=== PATIENT | female | born 1965 | race Caucasian/White ===

== ENCOUNTER 2017-01-15 10:30 | Day surgery (SDC) | payer OTHER ==
[2017-01-01 16:19] VITALS: BMI 25.6
[~2017-01-15 10:30] MED LIST: CEFAZOLIN 1 GM/D5W 50 ML IVPB ONE
[2017-01-15] MEDS ORDERED: LIDOCAINE HCL 1%, 10 MG/ML (20ML VIAL) ONE (11:33)
[2017-01-15] MEDS ORDERED: BUPIVACAINE HCL/PF 2.5 MG/ML - 30 ML VIAL IJ ONE (11:33)
[2017-01-15] MEDS ORDERED: DEXAMETHASONE SOD PHOSPHATE/PF 10 MG/ML SDV ONE (11:33)
[2017-01-15] MEDS ORDERED: LIDOCAINE HCL 2% (20ML MULTI-DOSE VIAL) NR ONE (11:34)
[2017-01-15] MEDS ORDERED: MIDAZOLAM HCL 2 MG/2 ML SINGLE DOSE VIAL ONE (11:52)
[2017-01-15] MEDS ORDERED: BUPIVACAINE HCL/PF 0.5% (5MG/ML) 10 ML VIAL ONE (12:00)
[2017-01-15] MEDS ORDERED: PROPOFOL 20 ML ONE ×2 (12:22→12:25)
[2017-01-15] MEDS ORDERED: ONDANSETRON 4 MG/2 ML VIAL ONE (12:23)
[2017-01-15] MEDS ORDERED: GLYCOPYRROLATE 0.2 MG/1 ML VIAL ONE (12:23)
[2017-01-15] MEDS ORDERED: DEXAMETHASONE SOD PHOSPHATE 4 MG/1 ML VIAL ONE (12:23)
[2017-01-15] MEDS ORDERED: LIDOCAINE HCL 2% (50ML VIAL) INF ONE (12:37)
[2017-01-15] MEDS ORDERED: PHENYLEPHRINE HCL 10 MG/1 ML SINGLE DOSE VIAL ONE (12:42)
[2017-01-15] MEDS ORDERED: DEXAMETHASONE SOD PHOSPHATE 10 MG/1 ML VIAL IM ONE (13:15)
[2017-01-15] MEDS ORDERED: BUPIVACAINE HCL/PF 0.5% (5MG/ML) 10 ML VIAL IJ ONE (13:16)
[2017-01-15 14:06] VITALS: TEMP 97.5
[2017-01-15 14:35] VITALS: PULSE 81
[2017-01-15 15:04] VITALS: BP 146/97
--- NOTE | 2017-01-16 00:25 | OP ---
DATE OF OPERATION: 01/15/2017 PREOPERATIVE DIAGNOSIS: Hallus abducto valgus deformity right foot. POSTOPERATIVE DIAGNOSIS: Hallus abducto valgus deformity right foot. PROCEDURE: Eduardo bunionectomy right foot. ANESTHESIA: Local with MAC (13.0 mL of lidocaine 2% plain was used). SURGEON: Garrison Orosco M.D. ASSISTANTS: None. HEMOSTASIS: Obtained using a pneumatic ankle tourniquet at the right ankle at 250 mmHg. PROCEDURE: Patient's vital signs were noted to be stable. She was brought to the OR and placed on the OR table in the supine position. Under general sedation, patient was administered local anesthesia. Once local anesthesia was attained, a sterile prepping and draping of the right foot was performed. Now the well padded tourniquet at the right ankle was inflated. And at this point, a 4.0 cm dorsal linear incision was made centered proximal to the first MPJ and the incision was just medial to the extensor hallucis longus tendon. The incision was carefully deepened via sharp and blunt dissection. The skin and subcutaneous tissues were reflected away from the underlying deep capsular structures, both medial and laterally. Now an L-shaped capsular incision was made, the base of the L being medial at the first MPJ joint line. Now the medial collateral ligament of the first MPJ was transected. Attention was paid both the medial and lateral aspects of the first MPJ whereby the capsular and periosteal tissues were sharply dissected from both aspects of the first metatarsal head. At this point the medial eminence of the first metatarsal head was resected using a sagittal saw. It was noted that there were at least 2 exostoses projecting medially at the medial aspect of the first metatarsal head. Now the foot was repositioned so that the medial aspect of the first metatarsal head was on the transverse plane. At this point, two osteotomies were created. The plantar osteotomy was made at a 60 degree angle to the long axis of the first metatarsal shaft. The second osteotomy was made at approximately 40 degree angle to this first cut, and this was made from the center of the first metatarsal head to the dorsum of the first metatarsal shaft. Therefore, the apex of this V was essential in the first metatarsal head. The osteotomy was carried straight through and through the lateral cortex. At this point, the capital fragment was transposed laterally upon the first metatarsal shaft. Once adequate alignment of the first MPJ was appreciated, the capital fragment was impacted upon the first metatarsal shaft and was noted to be very stable. At this point, a medial capsulorrhaphy was performed at the first MPJ. Now the capsular tissue was closed using simple sutures of 2-0 Vicryl. An extensor hallucis longus tenectomy was performed as well as tenotomy of the adducta hallucis tendon. The subcutaneous tissue was closed using simple sutures of 4-0 Vicryl. The skin was closed using subcuticular sutures of 4-0 Prolene. Postoperative injectable consisting of 2.0 mL dexamethasone phosphate where 8 mg of dexamethasone phosphate was used with 2.0 mL of Marcaine 0.5% plain. The tourniquet was deflated and normal capillary filling time was noted instantaneously all digits right foot. The wound expectancy is clean, and the prognosis is good. GARRISON OROSCO DPM [id number]
--- NOTE | 2017-01-21 16:03 | PATH ---
Surgical Pathology Report Patient Name: SILVANA ZEPEDA [facility]. Rec. #: [id number] /Age/Gender: 1965 (Age: 51) / F Account: [id number] Location: [facility] Taken: 01/15/2017 Received: 01/15/2017 Reported: 01/21/2017 Physicians: Lucien Ho Specimen(s) Received A: EXOSTOSIS FIRST METATARSAL HEAD RIGHT FOOT B: CAPSULAR TISSUE FIRST METATARSAL RIGHT FOOT Clinical History HAV deformity right foot Final Diagnosis A. EXOSTOSIS, FIRST METATARSAL HEAD, RIGHT FOOT, EXCISION: CARTILAGE-CAPPED BONE SHOWING DEGENERATIVE CHANGES OF OVERLYING CARTILAGE. B. CAPSULAR TISSUE, FIRST METATARSAL, RIGHT FOOT, EXCISION: FIBROCOLLAGENOUS TISSUE, CARTILAGE AND SCANT BONE. Electronically Signed Rani Nixon M.D. Gross Description A. Received in formalin labeled "exostosis first metatarsal head right foot," are 2 del rio, irregular portions of bone measuring 1.1 x 0.7 x 0.2 cm and 1.7 x 1.4 x 0.3 cm. Cutting Torch Operator sections are submitted in one cassette, following decalcification. B. Received in formalin labeled "capsular tissue first metatarsal right foot," is a 1.1 x 0.5 x 0.2 cm del rio soft tissue fragment. The specimen is submitted in toto in one cassette. 01/16/201701/16/2017
== END 2017-01-15 15:09 | disposition home or self-care (01) ==
LOC: FASU 10:30
PROVIDERS: ATTEND Podiatrist
PROC: 0QSN0ZZ Reposition Right Metatarsal, Open Approach (ICD-10-PCS; principal; 2017-01-15 12:31)
DX: M20.11 Hallux valgus (acquired), right foot (principal)
CPT/HCPCS: 84703; 88304-TC; 88311-TC

== ENCOUNTER 2017-01-17 15:44 | Emergency (ER) | payer OTHER ==
[2017-01-17 15:49] VITALS: BP 139/91; PULSE 107; TEMP 97.4; BMI 27.4
--- NOTE | 2017-01-17 16:12 | PDOC ---
History of Present Illness - General Chief Complaint: Injury Stated Complaint: HAND INJURY Time Seen by Provider: 01/17/17 15:57 History Source: Patient Exam Limitations: No Limitations - History of Present Illness Initial Comments: 01/17/17 16:07 51 yr female trip and fall injured right hand. Method of Injury: reports: fell Extremity Pain Location - Extremity Pain Location Extremity Pain Locations: right: hand Past History - Past Medical History Allergies/Adverse Reactions: Allergies Allergy/AdvReac Type Severity Reaction Status Date / Time No Known Allergies Allergy Verified 01/17/17 15:46 Home Medications: Ambulatory Orders NK [No Known Home Medication] 01/17/17 Anemia: No Asthma: No Cancer: Yes (HX [facility] 2000-TREATED WITH CHEMO AND RT) Cardiac Disorders: No CVA: No COPD: No CHF: No Dementia: No Diabetes: No GI Disorders: No Disorders: No HTN: Yes Hypercholesterolemia: No Liver Disease: No Seizures: No Thyroid Disease: No - Surgical History Abdominal Surgery: Yes (fibroids) Appendectomy: No Cardiac Surgery: No Cholecystectomy: No Lung Surgery: No Neurologic Surgery: No Orthopedic Surgery: No - Psycho/Social/Smoking Cessation Hx Anxiety: No Suicidal Ideation: No Smoking History: Never smoked Have you smoked in the past 12 months: No Information on smoking cessation initiated: No Hx Alcohol Use: No Drug/Substance Use Hx: No Substance Use Type: None Hx Substance Use Treatment: No Review of Systems - Review of Systems Able to Perform ROS?: Yes Is the patient limited Uzbek proficient: No Constitutional: No: Symptoms Reported HEENTM: No: Symptoms Reported Respiratory: No: Symptoms reported Cardiac (ROS): No: Symptoms Reported ABD/GI: No: Symptoms Reported : No: Symptoms Reported Musculoskeletal: Yes: Symptoms Reported *Physical Exam - Vital Signs Last Vital Signs Temp Pulse Resp BP Pulse Ox 97.4 F L 107 H 18 139/91 100 01/17/17 15:47 01/17/17 15:47 01/17/17 15:47 01/17/17 15:47 01/17/17 15:47 - Physical Exam General Appearance: Yes: Nourished, Appropriately Dressed HEENT: positive: EOMI, SHASHI Extremity: positive: Normal Capillary Refill, Tender (dorsal surface right hand at base of 4th and 5h digits with swelling noted) Integumentary: positive: Normal Color, Dry, Warm, Bruising, Other (nv intact from of all 5 digits, limited flexion of 4th finger due to pain at the base of finger ). negative: Swelling Neurologic: positive: Fully Oriented, Alert, Normal Mood/Affect, Normal Response , Motor Strength 5/5 Procedures - Splinting Splint Location: Right: Hand (volar splint right hand with 4th 5th fingers at 90 degrees flexion ) Hand-Made Type: orthoglass Splint Type: Yes: Volar ED Treatment Course - RADIOLOGY Radiology Studies Ordered: Category Date Time Status HAND- RIGHT [RAD] Stat Radiology 01/17/17 15:57 Ordered Medical Decision Making - Medical Decision Making 01/17/17 18:47 cc: right hand injury after trip and fall 01/17/17 18:49 positive xray for fracture will place in volar splint with 4th and 5th fingers at 90 degrees. pt tolerated well strict follow up inst discussed with pt who understands the plan. 01/17/17 18:54 *DC/Admit/Observation/Transfer Diagnosis at time of Disposition: Hand fracture, right Qualifiers: Encounter type: initial encounter Fracture type: closed Qualified Code(s): S62.91XA - Unspecified fracture of right wrist and hand, initial encounter for closed fracture - Discharge Dispostion Disposition: HOME Condition at time of disposition: Good - Referrals Referrals: Jerry Hunt [Primary Care Provider] - Noah Jasso MD [Staff Physician] - - Patient Instructions Additional Instructions: follow with the orthopedist next week call thursday to make appointment keep the splint in place do not remove do not get wet take aleve as needed for pain keep elevated on pillows to help with swelling any worsening pain return to ER
== END 2017-01-17 17:01 | disposition home or self-care (01) ==
LOC: JERFT 15:44
PROC: 2W3EX1Z Immobilization of Right Hand using Splint (ICD-10-PCS; principal; 2017-01-17)
DX: S62.394A Other fracture of fourth metacarpal bone, right hand, initial encounter for closed fracture (principal); W01.0XXA Fall on same level from slipping, tripping and stumbling without subsequent striking against object, initial encounter; Y93.89 Activity, other specified; Y92.89 Other specified places as the place of occurrence of the external cause; I10 Essential (primary) hypertension; Z85.71 Personal history of Hodgkin lymphoma
CPT/HCPCS: 73130-TC-RT; 99282-25

== ENCOUNTER 2018-05-11 15:00 | Emergency (ER) | payer OTHER ==
[2018-05-11 15:04] VITALS: BP 121/79; PULSE 61; TEMP 97.5; BMI 25.2
[2018-05-11] MEDS ORDERED: traMADol HCL 50 MG TABLET PO ONE (15:22)
[2018-05-11] MEDS ORDERED: traMADol HCL 50 MG TABLET ONE (15:30)
--- NOTE | 2018-05-11 15:48 | PDOC ---
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 Pt awoke and slipped down 10 wooden steps, striking her pelvis /coccyx then hitting her forehead and face on the wall at the landing. no loc, no subsequent headache/vision change/n/v/focal deficit but feeling foggy and developing ecchymosis around her eyes, which she's icing. Immediate and constant pain to her coccyx and low back, worse with weight- bearing. no bowel/bladder issues, no motor/sensory deficit. Took some nsaids at home but presents for evaluation and further pain control. no syncope/cp. Past History - Past Medical History Allergies/Adverse Reactions: Allergies Allergy/AdvReac Type Severity Reaction Status Date / Time No Known Allergies Allergy Verified 05/11/18 15:00 Home Medications: Ambulatory Orders Tramadol HCl 50 mg PO TID PRN #14 tablet MDD 3 tabs 05/11/18 Anemia: No Asthma: No Cancer: Yes (HX [facility] 2000-TREATED WITH CHEMO AND RT) Cardiac Disorders: No CVA: No COPD: No CHF: No Dementia: No Diabetes: No GI Disorders: No Disorders: No HTN: Yes Hypercholesterolemia: No Liver Disease: No Seizures: No Thyroid Disease: Yes - Surgical History Abdominal Surgery: Yes (fibroids) Appendectomy: No Cardiac Surgery: No Cholecystectomy: No Lung Surgery: No Neurologic Surgery: No Orthopedic Surgery: No - Suicide/Smoking/Psychosocial Hx Smoking History: Never smoked Have you smoked in the past 12 months: No Information on smoking cessation initiated: No Hx Alcohol Use: No Drug/Substance Use Hx: No Substance Use Type: None Hx Substance Use Treatment: No Review of Systems - Review of Systems Constitutional: No: Chills, Fever HEENTM: No: Recent change in vision Respiratory: No: Cough, Shortness of Breath Cardiac (ROS): No: Chest Pain, Lightheadedness, Syncope ABD/GI: No: Nausea, Vomiting Musculoskeletal: Yes: See HPI Integumentary: Yes: Bruising Neurological: No: Headache All Other Systems: Reviewed and Negative *Physical Exam - Vital Signs Last Vital Signs Temp Pulse Resp BP Pulse Ox 97.5 F L 61 18 121/79 100 05/11/18 15:00 05/11/18 15:00 05/11/18 15:00 05/11/18 15:00 05/11/18 15:00 - Physical Exam Comments: 05/11/18 15:44 General: Patient is alert and in no acute distress. Speech is clear and appropriate. Seated in stretcher speaking full sentences. Head: Atraumatic and nontender. Ecchymosis around L eye with slight upper eyelid swelling, no orbital step-off deformity. HEENT: Pupils are equal round and reactive to light, extraocular movements are intact. No facial deformity, no septal hematoma. The oropharynx is clear. Neck: The trachea is midline, there is no stridor. There is no midline cervical spine tenderness, full range of motion of neck. Chest: Nontender, no ecchymosis or abrasions. Heart: S1-S2, regular rate and rhythm. No murmurs. Lungs: Clear to auscultation bilaterally. Symmetric chest rise. Abdomen: Soft/nontender/nondistended. Bowel sounds are normal. There is no abdominal or flank ecchymosis. Back/Pelvis: There is slight midline lower lumbar/sacral spine tenderness without step-off. Coccyx tender to palpation, Pelvis otherwise stable and nontender. Extremities: There is no extremity deformity or joint swelling. No focal bony tenderness throughout. 2+ distal pulses throughout. Neuro: Alert and oriented x3. Cranial nerves II through XII are intact. 5 out of 5 motor strength x4 extremities. Gait is stable. Skin: Periorbital bruising on left, No abrasions/hematomas/lacerations. Psych: Affect is appropriate. ED Treatment Course - RADIOLOGY Radiology Studies Ordered: Category Date Time Status HEAD CT WITHOUT CONTRAST [CT] Stat CT Scan 05/11/18 15:28 Ordered COCCYX [RAD] Stat Radiology 05/11/18 15:22 Ordered PELVIS [RAD] Stat Radiology 05/11/18 15:22 Ordered - Medications Given in the ED: ED Medications Discontinued Medications Generic Name Dose Route Start Last Admin Trade Name Freq PRN Reason Stop Dose Admin Tramadol HCl 50 mg 05/11/18 15:22 05/11/18 15:33 Ultram - PO 05/11/18 15:23 50 mg ONCE ONE Administration Medical Decision Making - Medical Decision Making 05/11/18 15:48 52y/o healthy female with accidental slip/fall last night, here with facial contusion and likely coccyx fracture. ct head pelvis/coccyx xray pain control dispo 05/11/18 16:55 feels better after tramadol, moving much more comfortably. remains neuro intact. ct head without acute pathology. clinically consistent with ? concussion. pelvis wnl, + coccyx fracture on my prelim review. agrees with d/c, pain meds, understands return criteria. *DC/Admit/Observation/Transfer Diagnosis at time of Disposition: Accidental fall Qualifiers: Encounter type: initial encounter Qualified Code(s): W19.XXXA - Unspecified fall, initial encounter Facial contusion Qualifiers: Encounter type: initial encounter Qualified Code(s): S00.83XA - Contusion of other part of head, initial encounter Fractured coccyx Qualifiers: Encounter type: initial encounter Fracture type: closed Qualified Code(s): S32.2XXA - Fracture of coccyx, initial encounter for closed fracture - Discharge Dispostion Disposition: HOME Condition at time of disposition: Improved - Prescriptions Prescriptions: Tramadol HCl 50 mg PO TID PRN #14 tablet MDD 3 tabs PRN Reason: Pain - Referrals Referrals: Miguel Grullon MD [Staff Physician] - - Patient Instructions Printed Discharge Instructions: DI for Coccyx Fracture Additional Instructions: Stay hydrated. Tylenol 1000 mg every 8 hours and/or ibuprofen 600 mg every 8 hours as needed for moderate pain, Tramadol as prescribed as needed for severe pain. Tramadol can make you light headed, so take proper precautions. A CT scan of the head showed no acute abnormalities. Your symptoms could be most consistent with a concussion. It is recommended that you have physical rest , avoiding any activities that may increase the likelihood of you reinjuring your head. Cognitive rest is also recommended, avoid prolonged monitor exposure , reading, or loud noises. An xray shows a fracture of the coccyx (tailbone). Avoid prolonged weight- bearing by using a cushion or donut seat. Ice as needed to reduce swelling. You should follow up with your primary doctor, an orthopedic, and/or a neurologist as needed regarding today's emergency department visit. Return to the emergency department for any new or concerning symptoms, particularly worsening headache, vomiting or confusion, worsening sleepiness, focal weakness, intolerable pain, severe swelling or discoloration. - Post Discharge Activity Forms/Work/School Notes: Back to Work
== END 2018-05-11 17:18 | disposition home or self-care (01) ==
LOC: FER 15:00
DX: S00.83XA Contusion of other part of head, initial encounter (principal); S32.2XXA Fracture of coccyx, initial encounter for closed fracture; W10.9XXA Fall (on) (from) unspecified stairs and steps, initial encounter; Y93.89 Activity, other specified; Y92.008 Other place in unspecified non-institutional (private) residence as the place of occurrence of the external cause; I10 Essential (primary) hypertension; E07.9 Disorder of thyroid, unspecified; C81.90 Hodgkin lymphoma, unspecified, unspecified site
CPT/HCPCS: 70450-TC; 72170-TC-FY; 72220-TC-FY; 99282-25